=== PATIENT | female | born 1965 | race Caucasian/White ===

== ENCOUNTER 2023-02-12 12:11 | Emergency (ER) | payer BC, SELFPAY ==
[2023-02-12 12:16] VITALS: BP 164/104; PULSE 80; RESP 15; TEMP 36.8; O2SAT 96; BMI 21.4
--- NOTE | 2023-02-12 12:26 | ECG_ITS ---
[facility] Test Date: 2023-02-12 Pat Name: Eduin Rose Department: Room: Gender: Female Multiplex Operator: : 1965 Requested By: Yordy Pineda Order Number: [id number] Miranda MD: Dl Morales M.D. Measurements Intervals [place] Rate: 71 P: 61 AR: 143 QRS: 64 QRSD: 92 T: 62 QT: 398 QTc: 435 Interpretive Statements SINUS RHYTHM NONSPECIFIC T-WAVE ABNORMALITY No previous ECG available for comparison Electronically Signed On 02-12-2023 16:18:22 CDT by Dl Morales M.D. [email or web address].[email or web address]/store/[id number]
--- NOTE | 2023-02-12 12:34 | XRR_ITS ---
PROCEDURE INFORMATION: Exam: XR Chest Exam date and time: 02/12/2023 12:42 PM Age: 57 years old Clinical indication: Pain; Angina pectoris; Additional info: Chest pain.No history of trauma or recent surgery is provided. TECHNIQUE: Imaging protocol: Radiologic exam of the chest. 1image(s) are provided. Views: 1 view. COMPARISON: No relevant prior studies available. FINDINGS: Lungs: The lung volumes are slightly increased overall which may be effort related versus minimal air trapping. No lobar consolidation is appreciated. There appears to be some subcentimeter central bronchovascular averaging and could also be seen with some granulomatous or nodular related change. Pleural spaces: No pneumothorax or pleural effusion is appreciated. Heart/Mediastinum: The cardiomediastinal silhouette is within normal. No cardiac decompensation is appreciated. Diaphragm: The hemidiaphragms are symmetric. Bones/joints: There appears to be some thoracic spondylosis and slight disc degeneration. Soft tissues: No radiopaque foreign body or subcutaneous emphysema is appreciated. The inferolateral chest wall is technically excluded. XR/XR chest 1V portable [id number] IMPRESSION: There is some mild chronic air trapping appearance overall with no lobar type consolidation appreciated.No acute cardiopulmonary changes are appreciated.
[2023-02-12 13:28] LABS: Basophils # 0.1 10^3/uL (0.0-0.1); Basophils % 1.5 %; Eosinophils # 0.2 10^3/uL (0.0-0.8); Eosinophils % 2.4 %; Hematocrit 45.2 % (37.0-47.0); Lymphocytes # 2.2 10^3/uL (0.8-4.8); Lymphocytes % 36.1 %; Mean Corpuscular HGB Conc 33.2 g/dL (30.0-36.0); Mean Corpuscular Hemoglobin 32.8 pg (28.0-34.0); Mean Corpuscular Volume 98.9 fl (81-99); Mean Platelet Volume 8.7 fL (7.4-10.4); Monocytes # 0.5 10^3/uL (0.2-0.9); Neutrophils # 3.17 10^3/uL (1.8-7.7); Neutrophils % 51.5 %; Nucleated Red Blood Cells % 0 %; Platelet Count 216 10^3/cmm (130-400); Red Blood Count 4.57 10^6/uL (4.1-5.3); Red Cell Distribution Width 12.9 % (12.1-15.1); White Blood Count 6.2 10^3/uL (4.0-10.0)
[2023-02-12 13:48] LABS: Alanine Aminotransferase 21 U/L (0-33); Albumin Level 4.7 g/dL (3.5-5.2); Alkaline Phosphatase 83 U/L (35-105); Anion Gap 15.5 (5-19); Aspartate Amino Transferase 21 U/L (0-32); Blood Urea Nitrogen 8 mg/dL (6-20); Calcium 9.7 mg/dL (8.5-10.5); Carbon Dioxide 23 mmol/L (22-29); Chloride 102 mmol/L (98-107); Globulin 1.9 g/dL (1.3-4.6); Glomerular Filtration Rate 103.8 mL/min (90-130); Glucose 93 mg/dL (65-115); Osmolality Calculated 280 mOsm/kg (285-295); Potassium 4.5 mmol/L (3.5-5.1); Sodium 136 mmol/L (136-145); Total Bilirubin 0.2 mg/dL (0.15-1.2); Total Protein 6.6 g/dL (6.6-8.7)
[2023-02-12 13:50] LABS: Troponin(5th) Baseline 6 ng/L (0-10)
[2023-02-12 14:29] VITALS: BP 156/108; PULSE 70; RESP 18; O2SAT 98
--- NOTE | 2023-02-12 14:34 | ECG_ITS ---
[facility] Test Date: 2023-02-12 Pat Name: Eduin Rose Department: Room: Gender: Female Rotor Balancer: : 1965 Requested By: Danae Mills Order Number: [id number] Miranda MD: Dl Morales M.D. Measurements Intervals [place] Rate: 64 P: 69 MD: 154 QRS: 68 QRSD: 85 T: 65 QT: 408 QTc: 423 Interpretive Statements SINUS RHYTHM POSSIBLE LEFT ATRIAL ENLARGEMENT [-0.1mV P-WAVE IN V1/V2] NONSPECIFIC T-WAVE ABNORMALITY Compared to ECG 02/12/2023 12:26:22 No significant changes Electronically Signed On 02-12-2023 16:19:31 CDT by Dl Morales M.D. [id number]
--- NOTE | 2023-02-12 14:36 | ED_ITS ---
HPI - Chest Pain General: Chief Complaint: Chest Pain Stated Complaint: chest pain, sob Time Seen by Provider: 02/12/23 14:12 Source: patient Mode of arrival: ambulatory History of Present Illness: 57-year-old female presents emergency room with complaint of chest pain has been going on for the last 3 days. History of high blood pressure she is currently taking amlodipine and doxazosin. No recent change in medication she has regular him taking her medication she is a smoker she has no history of diabetes no known history of coronary artery disease. She has not noticed anything that exacerbates or relieves her chest discomfort. She had a similar episode in August of this year she is seeing her doctor but did not have any cardiac work- up in terms of echo angiogram or stress testing. MD complaint: chest pain Onset (ago): day(s) (2) Onset: during rest Pain location: left chest Pain radiation: none Severity: mild Quality: aching and heaviness Relieving factors: nothing Exacerbating factors: nothing Associated symptoms: Deny abdominal pain, diaphoresis, dyspnea, fever(s), leg edema, nausea, palpitations, sense of impending doom, syncope or vomiting Review of Systems Const: Denies: fever(s), chills, fatigue, malaise or diaphoresis Card: Reports: chest pain; Denies: palpitations, irregular heart rhythm, edema or syncope Resp: Denies: dyspnea GI: Denies: abdominal pain, nausea or vomiting : Denies: flank pain, difficulty voiding, dysuria, urinary frequency or urinary urgency Skin/Breast: Denies: rash or pruritus Physical Exam Const: GENERAL APPEARANCE: cooperative and comfortable ORIENT ATION/CONSCIOUSNESS: Yes awake, Yes oriented to person, Yes oriented to place and Yes oriented to time HENMT: COMMON NORMALS: normocephalic, atraumatic and hearing grossly normal bilaterally HEAD & SCALP: normocephalic and atraumatic Resp: COMMON NORMALS: normal respiratory effort, No retractions, No use of accessory muscles and clear to auscultation bilaterally AUSCULTATION: clear to auscultation bilaterally Cardio: COMMON NORMALS: regular rate, regular rhythm and No murmurs present (Cardio) RATE: regular rate RHYTHM: regular rhythm GI: COMMON NORMALS: Soft to palpation and No hepatosplenomegaly present AUSCULTATION: Yes normoactive bowel sounds PALPATION: Yes Soft to palpation, No Tenderness to palpation present (GI), No Guarding due to palpation present (GI) and Yes No hepatosplenomegaly present Extremity: COMMON NORMALS: normal to inspection, capillary refill normal, no clubbing, cyanosis or edema, no calf tenderness and no pedal edema Neuro: SENSORIUM/ORIENTATION: Yes oriented to person, Yes oriented to place and Yes oriented to time Skin: COMMON NORMALS: no rashes or lesions noted GENERAL SKIN EXAM: no rashes or lesions noted Course Vital Signs: Vital signs: Vital Signs Temperature 98.2 F 02/12/23 12:16 Pulse Rate 86 02/12/23 15:04 Respiratory Rate 16 02/12/23 15:04 Blood Pressure 162/91 02/12/23 15:04 Pulse Oximetry 99 02/12/23 15:04 Oxygen Delivery Me thod Room Air 02/12/23 15:04 MDM - Chest Pain Medical Decision Making EKG and cardiac enzymes are negative. We will discharge patient home add Toprol-XL 25 to get a continue to take the doxazosin and amlodipine. Recommend she follow-up with her primary care doctor within the week to reevaluate blood pressure. If she has a worsening or change symptoms return. Case management make arrangements for an outpatient stress test. Medical Records I reviewed the patient's medical records. Lab Data I reviewed the patient's lab results. 02/12/23 13:12 02/12/23 13:12 Radiology Impressions Chest X-Ray 02/12/23 12:34 IMPRESSION: There is some mild chronic air trapping appearance overall with no lobar type consolidation appreciated.No acute cardiopulmonary changes are appreciated. Laboratory Results WBC 6.2 10^3/uL (4.0-10.0) 02/12/23 13:12 RBC 4.57 10^6/uL (4.1-5.3) 02/12/23 13:12 Hgb 15.0 g/dL (11.5-15.3) 02/12/23 13:12 Hct 45.2 % (37.0-47.0) 02/12/23 13:12 MCV 98.9 fl (81-99) 02/12/23 13:12 MCH 32.8 pg (28.0-34.0) 02/12/23 13:12 MCHC 33.2 g/dL (30.0-36.0) 02/12/23 13:12 RDW 12.9 % (12.1-15.1) 02/12/23 13:12 Plt Count 216 10^3/cmm (130-400) 02/12/23 13:12 MPV 8.7 fL (7.4-10.4) 02/12/23 13:12 Neut % (Auto) 51.5 % 02/12/23 13:12 Lymph % (Auto) 36.1 % 02/12/23 13:12 [place] % (Auto) 8.0 % 02/12/23 13:12 Eos % (Auto) 2.4 % 02/12/23 13:12 Baso % (Auto) 1.5 % 02/12/23 13:12 Neut # (Auto) 3.17 10^3/uL (1.8-7.7) 02/12/23 13:12 Lymph # (Auto) 2.2 10^3/uL (0.8-4.8) 02/12/23 13:12 [place] # (Auto) 0.5 10^3/uL (0.2-0.9) 02/12/23 13:12 Eos # (Auto) 0.2 10^3/uL (0.0-0.8) 02/12/23 13:12 Baso # (Auto) 0.1 10^3/uL (0.0-0.1) 02/12/23 13:12 Nucleated RBC % (auto) 0 % 02/12/23 13:12 Nucleated RBCs # 0.0 /100WBC 02/12/23 13:12 Sodium 136 mmol/L (136-145) 02/12/23 13:12 Potassium 4.5 mmol/L (3.5-5.1) 02/12/23 13:12 Chloride 102 mmol/L (98-107) 02/12/23 13:12 Carbon Dioxide 23 mmol/L (22-29) 02/12/23 13:12 Anion Gap 15.5 (5-19) 02/12/23 13:12 BUN 8 mg/dL (6-20) 02/12/23 13:12 Creatinine 0.6 mg/dL (0.5-0.9) 02/12/23 13:12 GFR Calculation 103.8 mL/min (90-130) 02/12/23 13:12 Glucose 93 mg/dL (65-115) 02/12/23 13:12 Calculated Osmolality 280 mOsm/kg (285-295) L 02/12/23 13:12 Calcium 9.7 mg/dL (8.5-10.5) 02/12/23 13:12 Total Bilirubin 0.2 mg/dL (0.15-1.2) 02/12/23 13:12 AST 21 U/L (0-32) 02/12/23 13:12 ALT 21 U/L (0-33) 02/12/23 13:12 Alkaline Phosphatase 83 U/L (35-105) 02/12/23 13:12 Troponin T Baseline 6 ng/L (0-10) 02/12/23 13:12 Troponin T 120 Minute 6.00 ng/L (0-10) 02/12/23 15:00 Delta Troponin T 0 ABS# (0-10) 02/12/23 15:00 Total Protein 6.6 g/dL (6.6-8.7) 02/12/23 13:12 Albumin 4.7 g/dL (3.5-5.2) 02/12/23 13:12 Globulin 1.9 g/dL (1.3-4.6) 02/12/23 13:12 Discharge Plan Discharge Patient Disposition: Home Clinical Impression: Atypical chest pain, HTN (hypertension) Condition: Stable Prescriptions: New Toprol XL 25 mg tablet extended release 24 hr 25 mg PO DAILY Qty: 30 0RF No Action doxazosin 1 mg tablet 1 mg PO DAILY amlodipine 5 mg tablet 5 mg PO DAILY albuterol sulfate 90 mcg/actuation HFA aerosol inhaler 1 puff INHALATION Q4H PRN (Reason: Shortness Of Breath Or Wheezing) varenicline 0.5 mg (11)- 1 mg (42) tablets,dose pack 1 ea PO BID Benadryl 25 mg Capsule 25 mg PO TID PRN (Reason: Allergic Symptoms) ibuprofen 200 mg Tablet 800 mg PO Q6H PRN (Reason: Pain) Discharge Orders: Discharge ED (Routine); Ordered 02/12/23 Ordered By: Yordy Dean Discharge Diet: Usual diet Discharge Activity: Resume usual activity Patient Instructions: Opioid Safety, Pain Management Activity Restrictions/Additional Instructions: Labs EKG and chest x-ray done in the emergency room today were normal. No sign of acute coronary syndrome. Your blood pressure was markedly elevated but did respond to treatment given. Recheck your blood pressure with your primary care doctor in the next 7 to 10 days. Continue your previously prescribed medications in addition start metoprolol XL 25 mg once daily. Coding Level of Care Code ED Lithographic Camera Operator for Mary Kate Whyte
[2023-02-12] MEDS: hyDRALAzine 20 mg/mL INJ 1 mL IVP (14:55)
[2023-02-12 15:04] VITALS: BP 162/91; PULSE 86; RESP 16; O2SAT 99
[2023-02-12 15:44] LABS: Troponin 5 2HR Delta 0 ABS# (0-10)
[2023-02-12 16:09] VITALS: BP 170/102; PULSE 76; RESP 16; O2SAT 98
--- NOTE | 2023-02-13 10:05 | DCPLANNER ---
Addendum entered by Yolanda Acevedo 03/09/23 08:58: Patient had a follow up appointment scheduled with [facility] - patient did attend appointment. Addendum entered by Yolanda Acevedo 02/13/23 14:41: Patient has a follow up appointment scheduled for Monday, March 06, 2023 at 12:[address] Clayton at [facility]. Original Note: manager call had message to schedule an outpatient stress test, home health care case manager called patient to confirm that patient wanted to have the stress test ordered and to confirm who patient sees for primary care. Patient stated that she wanted to wait at this time to have the stress test ordered, until she sees a armature tester and a follow up with her primary care. manager call sent patients information to the front office staff at [facility]. Patients information will be printed and reviewed, clinic will call patient with appointment information. manager call also spoke with patient about getting established with a primary care physician - patient stated that she has an appointment scheduled with Dr. Chisholm at [facility].
== END 2023-02-12 16:12 | disposition home or self-care (01) ==
PROVIDERS: Physician Assistant; Emergency Provider Family Medicine; PCP Electrodiagnostic Medicine
DX: R07.89 Other chest pain (principal); R06.02 Shortness of breath; I10 Essential (primary) hypertension
CPT/HCPCS: 36415; 71045; 80053; 84484; 85025; 93005; 96374; 99285; J0360

== ENCOUNTER 2023-03-16 09:58 | Outpatient (CLI) | payer BC, SELFPAY ==
[2023-03-16 10:22] LABS: Basophils # 0.1 10^3/uL (0.0-0.1); Basophils % 1.4 %; Eosinophils # 0.2 10^3/uL (0.0-0.8); Eosinophils % 3.1 %; Hematocrit 43.7 % (37.0-47.0); Hemoglobin 14.7 g/dL (11.5-15.3); Lymphocytes # 2.9 10^3/uL (0.8-4.8); Lymphocytes % 49.5 %; Mean Corpuscular HGB Conc 33.6 g/dL (30.0-36.0); Mean Corpuscular Hemoglobin 32.4 pg (28.0-34.0); Mean Corpuscular Volume 96.3 fl (81-99); Mean Platelet Volume 8.7 fL (7.4-10.4); Monocytes # 0.6 10^3/uL (0.2-0.9); Monocytes % 9.7 %; Neutrophils # 2.09 10^3/uL (1.8-7.7); Neutrophils % 36.1 %; Nucleated Red Blood Cells % 0 %; Platelet Count 250 10^3/cmm (130-400); Red Blood Count 4.54 10^6/uL (4.1-5.3); Red Cell Distribution Width 12.8 % (12.1-15.1); White Blood Count 5.8 10^3/uL (4.0-10.0)
[2023-03-16 10:32] LABS: Prothrombin Time (Patient) 13.5 Seconds (12.0-15.1)
[2023-03-16 10:42] LABS: Anion Gap 16.1 (5-19); Blood Urea Nitrogen 9 mg/dL (6-20); Calcium 9.4 mg/dL (8.5-10.5); Carbon Dioxide 24 mmol/L (22-29); Chloride 103 mmol/L (98-107); Glomerular Filtration Rate 103.8 mL/min (90-130); Glucose 121 mg/dL (65-115); Osmolality Calculated 288 mOsm/kg (285-295); Potassium 4.1 mmol/L (3.5-5.1); Sodium 139 mmol/L (136-145)
== END 2023-03-16 09:59 | disposition home or self-care (01) ==
PROVIDERS: PCP Electrodiagnostic Medicine; Visit Provider Internal Medicine
DX: I10 Essential (primary) hypertension (principal); I20.0 Unstable angina; R58 Hemorrhage, not elsewhere classified
CPT/HCPCS: 36415; 80048; 85025; 85610

== ENCOUNTER 2023-03-30 10:06 | Outpatient (CLI) | payer BC, SELFPAY ==
--- NOTE | 2023-03-30 | ECG_ITS ---
[facility] Test Date: 2023-03-30 Pat Name: Eduin Rose Department: Room: Gender: Female Java Xml Developer: : 1965 Requested By: Tate Clayton Order Number: [id number] Miranda MD: Tate Clayton M.D. Interpretive Statements NAME OF STUDY: LEXISCAN SESTAMIBI STRESS TEST INDICATION: [Chest Pain] Procedure: At the baseline, the blood pressure was 154/88 mmHg with a heart rate of 70 bpm. The electrocardiogram showed normal sinus rhythm, normal axis with normal ST and T's. The Lexiscan was infused over a period of 20 seconds. A total of 0.4 mg of Lexiscan was infused. The stress phase was continued for a total of 5 minutes. Heart rate was at the end of stress phase was 109 bpm and a blood pressure of 143/81 mmHg. The EKG at the peak infusion revealed normal sinus rhythm with no significant ST-T wave changes. Sestamibi was injected 20 seconds after the Lexiscan infusion. Blood pressure at the end of recovery phase was 136/84 mmHg with a heart rate of 103 bpm. Conclusion: 1. Normal EKG response to Lexiscan infusion 2. No Lexiscan induced chest pain or cardiac arrhythmia. 3. Normal blood pressure and heart rate response. 4. Sestamibi/sestamibi perfusion scan pending; see separate report. Electronically Signed On 04-16-2023 12:14:49 CDT by Tate Clayton M.D. [id number]
[2023-03-30 10:12] VITALS: BMI 32.5
--- NOTE | 2023-03-30 10:25 | NMCV_ITS ---
NM loida perf SPECT r/s* [id number] Eduin Rose Age: 57 Gender: F : 1965 Exam Date: 03/30/2023 11:18 Ordering Phys: Tate Clayton M.D ([email or web address]) Technologist: PAUL Henry Exam Location: [facility] Indications: CHEST PAIN, UNSTABLE ANGINA STRESS TEST Please see separate stress test report in [facility] for full findings IMAGE PROTOCOL Rest/Stress 1 Lexiscan Day Radiopharmaceutical Dose (mCi) Administration Site Administered by Rest: Tc-99m 10.4 IV Eric Bond, SALES ORDER CLERK Sestamibi Stress:Tc-99m 32.5 IV Eric Bond, SALES ORDER CLERK Sestamibi Rest: 30-Mar-2023 60 Discovery 630 Stress: 30-Mar-2023 30 Discovery 630 Images obtained in supine and prone position. 0.4mg Lexiscan. SPECT RESULTS Technical Quality: Excellent Raw Data Analysis: Normal Image Corrections: No attenuation or motion correction applied Summed Stress Score: 3 Summed Rest Score: 8 Summed Difference Score: 0 PERFUSION FINDINGS There is reduced radiotracer uptake in inferior and anterior villegas which improves on stress imaging and in prone imaging. This is consistent with attenuation artifact. No evidence of ischemia is seen FUNCTIONAL RESULTS (calculated via Gated SPECT) Stress Image LV EF (%): 66 Stress EDV (mL):88 TID: 1.18 Stress ESV (mL):30 FUNCTIONAL FINDINGS: There is normal left ventricular systolic function. IMPRESSIONS 1. Attenuation artifact is seen in inferior and anterior villegas. No evidence of ischemia 2. LV systolic function is normal. Tate Clayton MD (Electronically Signed) Final Date: 01 April 2023 15:08 S
[2023-03-30] MEDS: regadenoson 0.4 Mg/5 ml Syringe IVP (11:52)
[2023-03-30 12:53] VITALS: BP 136/84; PULSE 110
== END 2023-03-30 10:07 | disposition home or self-care (01) ==
LOC: CDL 10:06
PROVIDERS: PCP Electrodiagnostic Medicine; Visit Provider Internal Medicine
DX: I20.9 Angina pectoris, unspecified (principal)
CPT/HCPCS: 36415; 78452; 93017; 96374; A9500; J2785

== ENCOUNTER 2023-05-07 07:02 | Outpatient (CLI) | payer BC, SELFPAY ==
--- NOTE | 2023-05-07 | CT_ITS ---
WS: [id number] LDCT LUNG CANCER SCREENING HISTORY: NICOTINE DEPENDENCE, CIGARETTES TECHNIQUE: Axial imaging performed from the apices to 1 cm below the costophrenic angles. Coronal and sagittal reformats are submitted with axial MIP series. All CT scans at [facility] use at least one of these dose optimization techniques: automated exposure control; mA and/or kV adjustment per patient size (includes targeted exams where dose is matched to clinical indication); or iterativ e reconstruction. DLP: 45.91 mGy.cm DIvol: Mean CTDIvol: 0.70 (mGy) COMPARISON: None available. Diagnostic quality: Satisfactory Lungs: Moderate emphysema and hyperexpansion. LEFT lower lobe cluster of calcifications and bronchial wall thickening. There is a noncalcified micronodule measuring 2.9 mm. No mass, additional nodule or pneumonia. No endobronchial lesions. Heart: Normal size heart with no pericardial effusion.. Other findings: Mild atherosclerosis aorta. Small mediastinal and hilar lymph nodes. No adenopathy. S mall hiatal hernia. IMPRESSION: CT/CT lung screening [id number] LUNG-RADS: 2-Benign Appearance or Behavior FOLLOW UP: 12 Month: Continue annual screening with LDCT OTHER FINDINGS (S MODIFIER): None.
== END 2023-05-07 07:03 | disposition home or self-care (01) ==
PROVIDERS: PCP Electrodiagnostic Medicine; Visit Provider Electrodiagnostic Medicine
DX: Z12.2 Encounter for screening for malignant neoplasm of respiratory organs (principal); F17.210 Nicotine dependence, cigarettes, uncomplicated
CPT/HCPCS: 71271

== ENCOUNTER 2023-07-11 07:58 | Outpatient (CLI) | payer BC, SELFPAY ==
[2023-07-11 08:15] VITALS: PULSE 56; RESP 18; O2SAT 99
[2023-07-11] MEDS: albuterol 2.5 mg/3 mL Neb INHALATION (08:15)
[2023-07-11 08:20] VITALS: PULSE 61
== END 2023-07-11 07:59 | disposition home or self-care (01) ==
LOC: RT 07:58
PROVIDERS: PCP Electrodiagnostic Medicine; Visit Provider Electrodiagnostic Medicine
DX: J44.9 Chronic obstructive pulmonary disease, unspecified (principal); Z87.891 Personal history of nicotine dependence; R94.2 Abnormal results of pulmonary function studies
CPT/HCPCS: 94060; 94726; 94729; J7613

== ENCOUNTER 2023-12-19 08:30 | Outpatient (CLI) | payer BC, SELFPAY ==
[2023-12-19 09:34] LABS: Chol HDL Ratio 1.91 mg/dL (0.0-4.40); Cholesterol 202 mg/dL (0-200); HDL Cholesterol 106 mg/dL (60-100); LDL Cholesterol Calculated 84 mg/dL (50-129); LDL HDL Ratio 0.79 RATIO (0.00-3.22); Triglycerides 62 mg/dL (0-150)
== END 2023-12-19 08:31 | disposition home or self-care (01) ==
LOC: LAB 08:31
PROVIDERS: PCP Electrodiagnostic Medicine; Visit Provider Nurse Practitioner Family
DX: I20.89 Other forms of angina pectoris (principal)
CPT/HCPCS: 36415; 80061

== ENCOUNTER 2024-05-08 07:42 | Outpatient (CLI) | payer BC, SELFPAY ==
--- NOTE | 2024-05-08 07:46 | CT_ITS ---
WS: [id number] LDCT LUNG CANCER SCREENING HISTORY: NICOTINE DEPENDENCE, CIGARETTES TECHNIQUE: Axial imaging performed from the apices to 1 cm below the costophrenic angles. Coronal and sagittal reformats are submitted with axial MIP series. All CT scans at [facility] use at least one of these dose optimization techniques: automated exposure control; mA and/or kV adjustment per patient size (includes targeted exams where dose is matched to clinical indication); or iterativ e reconstruction. DLP: 42.92 mGy.cm DIvol: Mean CTDIvol: 0.80 (mGy) COMPARISON: 05/07/2023 Diagnostic quality: Satisfactory Lungs: Moderate emphysema and hyperexpansion. Reidentified is a cluster of calcifications in the LEFT lower lobe. There is an additional micronodule which also appears calcified now. There is no new mas s or nodule. Heart: Normal size heart with no pericardial effusion.. Small amount of pericardial thickening versus fluid. Other findings: No mediastinal adenopathy. Mild atherosclerosis aorta. Small hiatal hernia. CT/CT lung screening [id number] IMPRESSION: LUNG-RADS: 2-Benign Appearance or Behavior FOLLOW UP: 12 Month: Continue annual screening with LDCT OTHER FINDINGS (S MODIFIER): None.
== END 2024-05-08 07:43 | disposition home or self-care (01) ==
LOC: RAD 07:42
PROVIDERS: PCP Electrodiagnostic Medicine; Visit Provider Electrodiagnostic Medicine
DX: Z12.2 Encounter for screening for malignant neoplasm of respiratory organs (principal); F17.210 Nicotine dependence, cigarettes, uncomplicated; J43.9 Emphysema, unspecified; J98.4 Other disorders of lung; K44.9 Diaphragmatic hernia without obstruction or gangrene
CPT/HCPCS: 71271

== ENCOUNTER 2024-05-29 09:37 | Outpatient (CLI) | payer BC, SELFPAY ==
--- NOTE | 2024-05-29 09:43 | MM_ITS ---
WS: [id number] VIEWS: MLO and CC views both breasts. 3D digital tomosynthesis is also included in this exam. Baseline study Findings: The breasts are extremely dense, which lowers the sensitivity of mammography. No suspicious mass, tumor calcification or architectural distortion. MM/MM scr BI tomosynthesis [id number] Impression: BI-RADS: 2 - Benign FOLLOW-UP: 1 Year Follow-up This mammogram was also analyzed by the Computer Aided Detection System R2 Imag e Shank Paperer.
== END 2024-05-29 09:38 | disposition home or self-care (01) ==
LOC: RAD 09:38
PROVIDERS: PCP Electrodiagnostic Medicine; Visit Provider Electrodiagnostic Medicine
DX: Z12.31 Encounter for screening mammogram for malignant neoplasm of breast (principal); R92.333 Mammographic heterogeneous density, bilateral breasts
CPT/HCPCS: 77063; 77067